=== PATIENT | female | born 1970 | race Two or more races ===

== ENCOUNTER 2023-12-31 12:13 | Emergency (ER) | payer OTHER ==
[~2023-12-31] VITALS: Ht 172.7 cm; Wt 76.2 kg
[~2023-12-31 12:13] MED LIST: AMOX1TAB5; ITCH RELIEF15 G1 TOP
[2023-12-31] MEDS ORDERED: GUAIFENESIN 200 MG/10 ML BLIST.PACK PO ONE (13:15)
[2023-12-31] MEDS ORDERED: DEXAMETHASONE SODIUM PHOSPHATE 4 MG/ML VIAL IM ONE (13:15)
[2023-12-31] MEDS ORDERED: BENZONATATE 100 MG CAPSULE PO ONE (13:15)
[2023-12-31 13:47] LABS: HEMATOCRIT 34.3 % (36.0-45.00); HEMOGLOBIN 11.8 g/dL (12.0-15.00); MEAN CELL VOLUME 87.3 fL (80.00-100.00); MEAN CORPUSCULAR HEMOGLOBIN 29.9 pg (27.00-32.0); MEAN CORPUSCULAR HGB CONC 34.3 g/dl (32.0-36.0); PLATELET COUNT 243 K/uL (150-450); RED BLOOD COUNT 3.93 M/uL (4.00-6.00); RED CELL DISTRIBUTION WIDTH 13.2 % (11.5-14.5)
== END 2023-12-31 15:03 | disposition home or self-care (01) ==
LOC: ER 12:15
PROVIDERS: General Practice
DX: R53.81 Other malaise (principal); J06.9 Acute upper respiratory infection, unspecified; Z20.822 Contact with and (suspected) exposure to COVID-19; Z88.6 Allergy status to analgesic agent